=== PATIENT | female | born 1990 | race Caucasian/White ===

== ENCOUNTER 2021-05-09 08:24 | Outpatient (REF) | payer OTHER, MEDICAID, SELFPAY ==
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
[2021-05-11 14:56] LABS: COVID-19 RT-PCR UVMMC Result Negative (Negative)
== END 2021-05-09 08:25 | disposition home or self-care (01) ==
LOC: LBN 08:24
PROVIDERS: PCP Family Medicine; Visit Provider Physician Assistant Medical
DX: Z20.822 Contact with and (suspected) exposure to COVID-19 (principal)
CPT/HCPCS: U0003